=== PATIENT | male | born 1990 | race Hispanic/Latino ===

== ENCOUNTER 2019-02-23 17:55 | Emergency (ER) | payer OTHER, SELFPAY ==
[2019-02-23] MEDS ORDERED: TETANUS & DIPHTHERIA TOX,ADULT 0.5 ML VIAL ONE (18:20)
[2019-02-23] MEDS ORDERED: LIDOCAINE 1% MPF 30 ML VIAL ONE (19:17)
--- NOTE | 2019-02-23 19:36 | RAD REPORT ---
EXAM DESCRIPTION: RAD - Knee Right 3 View - 02/23/2019 6:45 pm CLINICAL HISTORY: Right knee pain FINDINGS: No fracture or dislocation is seen. Soft tissue swelling. A radiopaque foreign body is not clearly seen
--- NOTE | 2019-02-23 19:55 | ER ---
Nurse's Notes [facility] Name: Gregorio Lorenzo Age: 29 yrs Sex: Male : 1990 Arrival Date: 02/23/2019 Time: 18:01 Bed 28 Private MD: Levi Sharp E Diagnosis: Puncture wound with foreign body, right knee Presentation: 02/23 18:03 Presenting complaint: Splinter in right knee x 2 days. Transition of care: patient was hb not received from another setting of care. Onset of symptoms was February 22, 2019. Risk Assessment: Do you want to hurt yourself or someone else? Patient reports no desire to harm self or others. Initial Sepsis Screen: Does the patient meet any 2 criteria? No. Patient's initial sepsis screen is negative. Does the patient have a suspected source of infection? No. Patient's initial sepsis screen is negative. Care prior to arrival: None. 18:03 Method Of Arrival: Ambulatory hb 18:03 Acuity: JEMIMA 4 hb Historical: - Allergies: 18:04 No Known Allergies; hb - Home Meds: 18:04 None [Active]; hb - PMHx: 18:04 None; hb - PSHx: 18:04 None; hb - Immunization history:: Adult Immunizations up to date. - Social history:: Smoking status: Patient/guardian denies using tobacco. - Ebola Screening: : No symptoms or risks identified at this time. Screenin:15 Abuse screen: Denies threats or abuse. Nutritional screening: No deficits noted. tr5 Tuberculosis screening: No symptoms or risk factors identified. Fall Risk None identified. Assessment: 18:15 General: Appears in no apparent distress. Behavior is calm, cooperative, appropriate tr5 for age. Pain: Complains of pain in right knee. Neuro: Level of Consciousness is awake, alert, obeys commands, Oriented to person, place, time, Wash Plant Operator are equal bilaterally Moves all extremities. Cardiovascular: Heart tones present Capillary refill < 3 seconds Pulses are all present. Edema is absent. Respiratory: Airway is patent Respiratory effort is even, unlabored, Respiratory pattern is regular, symmetrical. GI: No signs and/or symptoms were reported involving the gastrointestinal system. : No signs and/or symptoms were reported regarding the genitourinary system. EENT: No signs and/or symptoms were reported regarding the EENT system. Derm: Wound noted right knee. Musculoskeletal: No signs and/or symptoms reported regarding the musculoskeletal system. Vital Signs: 18:03 BP 148 / 93; Pulse 83; Resp 16; Temp 98.6; Pulse Ox 100% on R/A; Weight 104.33 kg; hb Height 5 ft. 7 in. (170.18 cm); Pain 3/10; 18:03 Body Mass Index 36.02 (104.33 kg, 170.18 cm) hb ED Course: 18:01 Patient arrived in ED. mr 18:01 Levi Sharp MD is Private Physician. mr 18:02 Arm band placed on. hb 18:03 Triage completed. hb 18:09 Elliott Monsivais NP is PHCP. pm1 18:09 Joi Campos MD is Attending Physician. pm1 18:13 Giovanni Mejia RN is Primary Nurse. tr5 18:15 Bed in low position. Call light in reach. Side rails up X 1. tr5 19:54 Felix Bello MD is Referral Physician. pm1 20:22 No provider procedures requiring assistance completed. Patient did not have IV access tr5 during this emergency room visit. Administered Medications: 18:33 Drug: Tetanus-Diphtheria Toxoid Adult 0.5 ml {Crisis Clinician: [employer]. Exp: tr5 08/14/2020. Lot #: [id number]. } Route: IM; Site: left deltoid; 20:20 Follow up: Response: No adverse reaction tr5 19:22 Drug: Lidocaine (1 %) 5 ml Volume: 5 ml; Route: Infiltration; tr5 20:20 Drug: Ancef 1 grams Route: IM; Site: right ventrogluteal; tr5 Outcome: 19:55 Discharge ordered by . pm1 20:22 Discharged to home ambulatory. tr5 20:22 Condition: stable 20:22 Discharge instructions given to patient, Instructed on discharge instructions, follow up and referral plans. medication usage, Demonstrated understanding of instructions, follow-up care, medications. 20:26 Patient left the ED. tr5 Signatures: Esha Velásquez Elliott Monsivais, YARA FIELD TALENT QUALIFICATION SPECIALIST pm1 Tiffany Ryan RN RN Giovanni Mejia RN RN tr5
--- NOTE | 2019-02-23 19:55 | EDPHYS ---
Physician Documentation [facility] Name: Gregorio Lorenzo Age: 29 yrs Sex: Male : 1990 Arrival Date: 02/23/2019 Time: 18:01 Bed 28 Private MD: Levi Sharp E ED Physician Joi Campos HPI: 02/23 19:18 This 29 yrs old Male presents to ER via Ambulatory with complaints of Foreign pm1 body in right knee. 19:18 The reported likely foreign body is wooden splinter. Onset: The symptoms/episode pm1 began/occurred yesterday. Treatment Prior to Arrival: mother attempted to remove tooth pick when it occurred and it broke off at the skin. Went to clinic prior to arrival and the provider was not able to remove the foreign body and recommended ER evlaution. The patient has not experienced similar symptoms in the past. Patient was crawling on his bedroom floor while cleaning and got a wooden splinter to his right knee yesterday. 19:18 Mother reports that the wooden splinter entered medially. pm1 Historical: - Allergies: 18:04 No Known Allergies; hb - Home Meds: 18:04 None [Active]; hb - PMHx: 18:04 None; hb - PSHx: 18:04 None; hb - Immunization history:: Adult Immunizations up to date. - Social history:: Smoking status: Patient/guardian denies using tobacco. - Ebola Screening: : No symptoms or risks identified at this time. ROS: 19:18 Constitutional: Negative for fever, chills, and weight loss, Cardiovascular: Negative pm1 for chest pain, palpitations, and edema, Respiratory: Negative for shortness of breath, cough, wheezing, and pleuritic chest pain, Abdomen/GI: Negative for abdominal pain, nausea, vomiting, diarrhea, and constipation, Back: Negative for injury and pain, MS/Extremity: Negative for injury and deformity. 19:18 Neuro: Negative for headache, weakness, numbness, tingling, and seizure. 19:18 Skin: Positive for puncture, of the right knee. Exam: 19:18 Constitutional: This is a well developed, well nourished patient who is awake, alert, pm1 and in no acute distress. Head/Face: Normocephalic, atraumatic. Chest/axilla: Normal chest wall appearance and motion. Nontender with no deformity. No lesions are appreciated. Cardiovascular: Regular rate and rhythm with a normal S1 and S2. No gallops, murmurs, or rubs. Normal PMI, no JVD. No pulse deficits. Respiratory: Lungs have equal breath sounds bilaterally, clear to auscultation and percussion. No rales, rhonchi or wheezes noted. No increased work of breathing, no retractions or nasal flaring. Back: No spinal tenderness. No costovertebral tenderness. Full range of motion. 19:18 MS/ Extremity: Pulses equal, no cyanosis. Neurovascular intact. Full, normal range of motion. 19:18 Skin: Appearance: normal except for affected area, abscess, not appreciated, cellulitis, is not appreciated, injury, puncture(s), of the right knee, piece of wood visibly protruding from wound. 19:18 Neuro: Orientation: is normal, Motor: is normal, moves all fours. Vital Signs: 18:03 BP 148 / 93; Pulse 83; Resp 16; Temp 98.6; Pulse Ox 100% on R/A; Weight 104.33 kg; hb Height 5 ft. 7 in. (170.18 cm); Pain 3/10; 18:03 Body Mass Index 36.02 (104.33 kg, 170.18 cm) hb Procedures: 19:54 Foreign Body Removal: a toothpick, from the right knee, by using a hemostat, incising pm1 to remove, using lidocaine 1% without epinephrine to anesthesize the area, #11 blade, Puncture wound opened up with #11 blade and wound explored for any further foreign body. Toothpick appears completely intact. Wound copiously irrigated with NS and Betadine. Dressinx4s were used to dress the wound, The patient tolerated the removal well. MDM: 18:09 Patient medically screened. pm1 19:54 Data reviewed: vital signs. Data interpreted: Pulse oximetry: on room air is 100 %. pm1 Interpretation: normal. Counseling: I had a detailed discussion with the patient and/or guardian regarding: the historical points, exam findings, and any diagnostic results supporting the discharge/admit diagnosis, radiology results, the need for outpatient follow up, a general surgeon, to return to the emergency department if symptoms worsen or persist or if there are any questions or concerns that arise at home. 02/23 18:13 Order name: Knee Right 3 View XRAY pm1 02/23 19:43 Order name: RAD; Complete Time: 19:53 EDMS Administered Medications: 18:33 Drug: Tetanus-Diphtheria Toxoid Adult 0.5 ml {Electrician Supervisor Substation: [employer]. Exp: tr5 08/14/2020. Lot #: [id number]. } Route: IM; Site: left deltoid; 20:20 Follow up: Response: No adverse reaction tr5 19:22 Drug: Lidocaine (1 %) 5 ml Volume: 5 ml; Route: Infiltration; tr5 20:20 Drug: Ancef 1 grams Route: IM; Site: right ventrogluteal; tr5 Disposition: 02/24 17:23 Co-signature as Attending Physician, Joi Campos MD. ma2 Disposition: 02/23/19 19:55 Discharged to Home. Impression: Puncture wound with foreign body, right knee. - Condition is Stable. - Discharge Instructions: Puncture Wound. - Prescriptions for Keflex 500 mg Oral Capsule - take 1 capsule by ORAL route every 6 hours for 10 days; 40 capsule. - Medication Reconciliation Form, Thank You Letter, Antibiotic Education, Prescription Opioid Use, Work release form form. - Follow up: Felix Bello MD; When: 2 - 3 days; Reason: Wound Recheck, Recheck today's complaints, Continuance of care, Re-evaluation by your physician. - Problem is new. - Symptoms have improved. Signatures: Dispatcher [employer] EDMS Elliott Monsivais, YARA SHAVING MACHINE OPERATOR pm1 Tiffany Ryan RN RN Joi Campos MD MD ma2 Giovanni Mejia RN RN tr5 Corrections: (The following items were deleted from the chart) 02/23 20:26 19:55 02/23/2019 19:55 Discharged to Home. Impression: Puncture wound with foreign tr5 body, right knee. Condition is Stable. Forms are Medication Reconciliation Form, Thank You Letter, Antibiotic Education, Prescription Opioid Use. Follow up: Felix Bello; When: 2 - 3 days; Reason: Wound Recheck, Recheck today's complaints, Continuance of care, Re-evaluation by your physician. Problem is new. Symptoms have improved. pm1
[2019-02-23] MEDS ORDERED: CEFAZOLIN/SWI 1gm 1 GM/10 ML SYR ONE (20:06)
[2019-02-24 01:15] VITALS: BP 148/93; TEMP 98.6; O2SAT 100
== END 2019-02-23 20:26 | disposition home or self-care (01) ==
LOC: ER 17:55
PROC: 0HCKXZZ Extirpation of Matter from Right Lower Leg Skin, External Approach (ICD-10-PCS; principal; 2019-02-23)
DX: S81.041A Puncture wound with foreign body, right knee, initial encounter (principal); Z23 Encounter for immunization
CPT/HCPCS: 90471; 90714; 96372; 99283; J0690

== ENCOUNTER 2024-11-30 | Emergency (ER) | payer SELFPAY ==
[2024-11-30] MEDS ORDERED: CLINDAMYCIN 600MG/D5W 50 ML IV ONE (01:08)
[2024-11-30] MEDS ORDERED: LORazepam 2 MG/ML VIAL ONE (01:17)
[2024-11-30 01:19] LABS: Absolute Lymphocytes (CBC) 2.3 K/uL (0.7-4.9); Hematocrit 45.3 % (39.6-49.0); Hemoglobin 15.8 g/dL (13.6-17.9); MCH 29.8 pg (27.0-35.0); MCHC 35.0 g/dL (32.0-36.0); MCV 85.1 fL (80-100); MPV 6.9 fL (7.6-11.3); Nucleated RBC Absolute Count 0.0 (0-0); Nucleated Red Blood Cells % 0.2 % (0-0); RBC Red Blood Cell Count 5.32 M/uL (4.33-5.43); White Blood Count 9.40 thou/uL (4.3-10.9)
[2024-11-30 01:35] LABS: Anion Gap 8.1 mEq/L (5.0-15.0); BUN Blood Urea Nitrogen 13.0 mg/dL (7-18); Glucose Level 82.0 mg/dL (74-106); Potassium 3.1 mEq/L (3.5-5.1)
--- NOTE | 2024-11-30 03:23 | ER ---
Nurse's Notes [facility] Name: Gregorio Lorenzo Age: 34 yrs Sex: Male : 1990 Arrival Date: 11/30/2024 Time: 00:00 Bed 7 Private MD: Diagnosis: Cellulitis of face;Dental caries, unspecified Presentation: 11/30 00:23 Chief complaint: Patient states: DENTAL CARIES AND BROKEN TOOTH ON LEFT TOP FOR MONTHS. jj7 NOW HAVING FACIAL SWELLING ON LEFT SIDE OF FACE MOVING UP INTO HIS PERIORBITAL AREA. NO PAIN AT THE MOMENT. Coronavirus screen: At this time, the client does not indicate any symptoms associated with coronavirus-19. Ebola Screen: No symptoms or risks identified at this time. Initial Sepsis Screen: Does the patient meet any 2 criteria? HR > 90 bpm. Yes Does the patient have a suspected source of infection? No. Patient's initial sepsis screen is negative. Risk Assessment: Do you want to hurt yourself or someone else? Patient reports no desire to harm self or others. Note MOTRIN 6P. 00:23 Method Of Arrival: Ambulatory [facility] 00:23 Acuity: JEMIMA 3 vc1 Triage Assessment: 00:29 General: Appears in no apparent distress. comfortable, Behavior is calm, cooperative, jj7 appropriate for age. Pain: Denies pain. Derm: Skin is pink, warm \T\ dry. normal, SWELLING NOTED TO LEFT CHEEK AND AROUND EYE Reports SWELLING TO LEFT SIDE OF FACE. Historical: - Allergies: 00:29 No Known Allergies; jj7 - PMHx: 00:29 Hypertensive disorder; HEART MURMUR; jj7 - Immunization history:: Adult Immunizations up to date, . - Infectious Disease History:: Denies. - Social history:: Smoking status: Patient denies any tobacco usage or history of. Patient/guardian denies using alcohol, street drugs, IV drugs. Screenin:31 [facility] ED Fall Risk Assessment (Adult) History of falling in the last 3 months, jj7 including since admission No falls in past 3 months (0 pts) Confusion or Disorientation No (0 pts) Intoxicated or Sedated No (0 pts) Impaired Gait No (0 pts) Mobility Assist Device Used No (0 pt) Altered Elimination No (0 pt) Score/Fall Risk Level 0 - 2 = Low Risk Oriented to surroundings, Maintained a safe environment, Educated pt \T\ family on fall prevention, incl call for assistance when getting out of bed, Assessed \T\ reinforced patient's understanding of fall precautions. Abuse screen: Denies threats or abuse. Nutritional screening: No deficits noted. Tuberculosis screening: No symptoms or risk factors identified. Assessment: 01:05 General: Appears in no apparent distress. comfortable, Behavior is calm, cooperative. lg3 Pain: Denies pain. Neuro: No deficits noted. Del[place] Cruz Agitation-Sedation Scale (RASS): 0 - Alert and Calm Level of Consciousness is awake, alert, obeys commands, Oriented to person, place, time, situation. Cardiovascular: No deficits noted. Denies chest pain, shortness of breath, Capillary refill < 3 seconds Clubbing of nail beds is absent JVD is absent Patient's skin is warm and dry. Respiratory: No deficits noted. Airway is patent Respiratory effort is even, unlabored, Respiratory pattern is regular, symmetrical. GI: No deficits noted. No signs and/or symptoms were reported involving the gastrointestinal system. Abdomen is round non-distended, obese. : No signs and/or symptoms were reported regarding the genitourinary system. EENT: Oral mucosa is moist. Poor dentition noted. Derm: Skin is intact, is healthy with good turgor, Skin is dry, Skin is normal, Skin temperature is warm. Musculoskeletal: Circulation, motion, and sensation intact. Range of motion: intact in all extremities, Swelling present in left cheek and left eye. 02:00 Reassessment: Patient appears in no apparent distress at this time. No changes from lg3 previously documented assessment. Patient and/or family updated on plan of care and expected duration. Pain level reassessed. Patient is alert, oriented x 3, equal unlabored respirations, skin warm/dry/pink. 02:26 Reassessment: Patient appears in no apparent distress at this time. Patient and/or vc1 family updated on plan of care and expected duration. Pain level reassessed. Patient states symptoms have improved. Vital Signs: 00:23 BP 190 / 139; Pulse 94; Resp 20; Temp 98.3; Pulse Ox 97% ; Weight 126.92 kg; Height 5 jj7 ft. 7 in. ; Pain 0/10; 02:04 BP 150 / 103; Pulse 88; Resp 17 S; Pulse Ox 97% on R/A; lg3 02:26 BP 142 / 92; Pulse 82; Resp 18; Pulse Ox 98% ; vc1 03:30 BP 162 / 99; Pulse 82; Resp 16; Pulse Ox 98% ; vc1 00:23 Body Mass Index 43.82 (126.92 kg, 170.18 cm) j7 00:23 Pain Scale: Adult [facility] ED Course: 00:05 Patient arrived in ED. gm2 00:29 Arm band placed on left wrist. jj7 00:44 Miguel Juarez DO is Attending Physician. tt7 01:04 Kate Barriga, RN is Primary Nurse. lg3 01:05 Patient has correct armband on for positive identification. Placed in gown. Bed in low lg3 position. Call light in reach. Side rails up X 1. Client placed on continuous cardiac and pulse oximetry monitoring. NIBP monitoring applied. Door closed. Noise minimized. Warm blanket given. Pillow given. Family accompanied patient. 01:10 Inserted saline lock: 20 gauge in right forearm, using aseptic technique. Blood sa1 collected. Flushed with 10 mL NS. 01:13 Initial lab(s) drawn, by me, sent to lab. sa1 01:57 CT Maxillofacial W/cont In Process Unspecified. EDMS 03:12 Triage completed. vc1 03:22 Abdirahman Flores DDS is Referral Physician. tt7 03:45 No provider procedures requiring assistance completed. IV discontinued, intact, vc1 bleeding controlled, No redness/swelling at site. Pressure dressing applied. Administered Medications: 01:13 Drug: Decadron - Dexamethasone IVP 10 mg IVP once Route: IVP; Site: right forearm; lg3 02:05 Follow up: Response: No adverse reaction lg3 01:13 Drug: Clindamycin IVPB 600 mg IVPB once over 30 mins; (mix in 50 mL) Route: IVPB; lg3 Infused Over: 30 mins; Site: right forearm; 02:05 Follow up: Response: No adverse reaction; IV Status: Completed infusion; IV Intake: [id number] 01:20 Drug: Ativan IVP 0.5 mg IVP once Route: IVP; Site: right antecubital; vc1 02:05 Follow up: Response: No adverse reaction; Marked relief of symptoms; RASS: Alert and lg3 Calm (0) Medication: 01:05 VIS not applicable for this client. lg3 Intake: 02:05 IV: 50ml; Total: 50ml. lg3 Outcome: 03:23 Discharge ordered by . tt7 03:45 Discharged to home ambulatory, with family, vc1 03:45 Condition: stable 03:45 Discharge instructions given to patient, family, Instructed on discharge instructions, follow up and referral plans. medication usage, Demonstrated understanding of instructions, follow-up care, medications, Prescriptions given X 1, 03:46 Patient left the ED. vc1 Signatures: Dispatcher [employer] EDMS Kate Barriga RN RN lg3 Renay Olsen RN RN vc1 Julian Vera RN RN Haylie Saeed Sultan sa1 Tarleton, Travis, DO TOMLINSON tt7
--- NOTE | 2024-11-30 03:23 | EDPHYS ---
Physician Documentation [facility] Name: Gregorio Lorenzo Age: 34 yrs Sex: Male : 1990 Arrival Date: 11/30/2024 Time: 00:00 Bed 7 Private MD: ED Physician Miguel Juarez Historical: - Allergies: 11/30 00:29 No Known Allergies; jj7 - PMHx: 00:29 Hypertensive disorder; HEART MURMUR; jj7 - Immunization history:: Adult Immunizations up to date, . - Infectious Disease History:: Denies. - Social history:: Smoking status: Patient denies any tobacco usage or history of. Patient/guardian denies using alcohol, street drugs, IV drugs. Vital Signs: 00:23 BP 190 / 139; Pulse 94; Resp 20; Temp 98.3; Pulse Ox 97% ; Weight 126.92 kg; Height 5 jj7 ft. 7 in. ; Pain 0/10; 02:04 BP 150 / 103; Pulse 88; Resp 17 S; Pulse Ox 97% on R/A; lg3 02:26 BP 142 / 92; Pulse 82; Resp 18; Pulse Ox 98% ; vc1 03:30 BP 162 / 99; Pulse 82; Resp 16; Pulse Ox 98% ; vc1 00:23 Body Mass Index 43.82 (126.92 kg, 170.18 cm) jj7 00:23 Pain Scale: Adult jj7 MDM: 00:44 Medical Screening Exam initiated tt11/30 00:54 Order name: Basic Metabolic Panel; Complete Time: 01:43 11/30 00:54 Order name: CBC with Diff; Complete Time: 01:43 11/30 00:54 Order name: CT Maxillofacial W/cont tt7 Administered Medications: 01:13 Drug: Decadron - Dexamethasone IVP 10 mg IVP once Route: IVP; Site: right forearm; lg3 02:05 Follow up: Response: No adverse reaction lg3 01:13 Drug: Clindamycin IVPB 600 mg IVPB once over 30 mins; (mix in 50 mL) Route: IVPB; lg3 Infused Over: 30 mins; Site: right forearm; 02:05 Follow up: Response: No adverse reaction; IV Status: Completed infusion; IV Intake: [id number] 01:20 Drug: Ativan IVP 0.5 mg IVP once Route: IVP; Site: right antecubital; vc1 02:05 Follow up: Response: No adverse reaction; Marked relief of symptoms; RASS: Alert and lg3 Calm (0) Disposition Summary: 11/30/24 03:23 Discharge Ordered Notes: Location: Home tt7 Problem: new tt7 Symptoms: have improved tt7 Condition: Stable tt7 Diagnosis - Cellulitis of face tt7 - Dental caries, unspecified tt7 Followup: tt7 - With: Emergency Department - When: As needed - Reason: Followup: tt7 - With: Private Physician - When: 1 - 2 days - Reason: Recheck today's complaints, Re-evaluation by your physician Followup: tt7 - With: Abdirahman Flores DDS - When: Tomorrow - Reason: Recheck today's complaints Discharge Instructions: - Discharge Summary Sheet tt7 - Dental Caries, Adult tt7 - Cellulitis, Adult, [id number] tt7 Forms: - Medication Reconciliation Form tt7 - Antibiotic Education tt7 - Prescription Opioid Use tt7 - Patient Portal Instructions tt7 - Leadership Thank You Letter tt7 Prescriptions: - Clindamycin HCl 150 mg Oral capsule - take 3 capsule ORAL route every 8 hours for 5 days; 45 capsule; Refills: 0, tt7 Product Selection Permitted Signatures: Dispatcher [employer] Kate Servin RN RN lg3 Renay Olsen RN RN vc1 Julian Vera RN RN jj7 Miguel Juarez, DO tt7
[2024-11-30 03:50] VITALS: TEMP 98.3
[2024-11-30 03:54] VITALS: O2SAT 98
[2024-11-30 03:55] VITALS: BP 162/99
--- NOTE | 2024-11-30 03:58 | RAD REPORT ---
INDICATION: FACIAL PAIN COMPARISON: No existing relevant imaging studies are available TECHNIQUE: Enhanced CT of the face was performed per protocol. Multiplanar reconstructions were provided. Dose reduction techniques were utilized for this exam including automated exposure control, adjustmen ts to mA and/or kV according to patient's size, and the use of iterative reconstruction techniques. FINDINGS: FACIAL BONES: No fracture. SOFT TISSUES: Subcutaneous inflammatory stranding within the left infraorbital region, premaxillary r egion and left lateral lower face. PARANASAL SINUSES: Unremarkable. ORAL CAVITY: Multiple dental caries, most notably involving the left maxillary first and second premo lars. ORBITS: Unremarkable. SKULL BASE: Unremarkable. OTHER: Tonsilloliths within the bilateral palatine tonsils. 2 prominent submandibular lymph nodes, li elbert reactive in etiology. IMPRESSION: 1. Subcutaneous inflammatory stranding within the left infraorbital region, premaxillary region and left lateral lower face, possibly related to cellulitis. 2. Multiple dental caries, most notably involving the left maxillary first and second premolars. Re commend follow-up with a dental professional. Electronically signed by: Gibran Hopper DO 11/30/2024 02:56 AM CDT NR Due to temporary technical issues with the PACS/[employer] reporting system, reports are being deejay d by the in-house radiologist without review as a courtesy to ensure prompt reporting the interpreting radiologist is fully responsible for the content of the report. Transcribed Date/Time: 11/30/2024 3:58 AM
== END 2024-11-30 03:46 | disposition home or self-care (01) ==
LOC: ER
DX: L03.211 Cellulitis of face (principal); K02.9 Dental caries, unspecified
CPT/HCPCS: 36415; 70487; 80048; 85025; 99284; J1100; Q9967